=== PATIENT | female | born 2000 | race Caucasian/White ===

== ENCOUNTER 2019-09-30 19:31 | Emergency (ER) | payer BC, OTHER ==
--- NOTE | 2019-09-30 20:47 | EDM.PDOC ---
ED HPI GENERAL MEDICAL PROBLEM - General Chief Complaint: Fever Stated Complaint: MIGRAINE, CHILLS AND NAUSIA Time Seen by Provider: 09/30/19 20:41 - History of Present Illness INITIAL COMMENTS - FREE TEXT/NARRATIVE: Jessenia is a 19 y/o female who comes to the ER with a a bad headache that started last night. She has since developed a fever, chills, sore throat, and clear runny nose. Her throat is sore and she just wants to sleep. Frontal Headache Pain Score (Numeric/FACES): 8 - Related Data Home Meds: Home Meds Benzonatate 100 mg PO Q8HR PRN #60 capsule 09/30/19 [Rx] Codeine/Promethazine [Phenergan with Codeine] 10 ml PO Q4HR PRN #240 ml [Rx] Past Medical History Respiratory History: Reports: Asthma, Other (See Below) Other Respiratory History: lung collapsed Psychiatric History: Reports: Anxiety, Depression - Past Surgical History HEENT Surgical History: Reports: Other (See Below) Other HEENT Surgeries/Procedures: wisdom teeth removed GI Surgical History: Reports: Appendectomy Female Surgical History: Reports: D&C Social & Family History - Tobacco Use Smoking Status *Q: Never Smoker - Alcohol Use Days Per Week of Alcohol Use: 1 Number of Drinks Per Day: 2 Total Drinks Per Week: 2 - Recreational Drug Use Recreational Drug Use: No Review of Systems - Review of Systems Review Of Systems: See Below Constitutional: Reports: Chills, Fever Eyes: Reports: No Symptoms Ears: Reports: No Symptoms Nose: Reports: Clear Discharge Mouth/Throat: Reports: Other (Sore throat) Respiratory: Reports: Cough Cardiovascular: Reports: No Symptoms GI/Abdominal: Reports: No Symptoms Genitourinary: Reports: No Symptoms Musculoskeletal: Reports: Other (Bosy Aches) Skin: Reports: No Symptoms Neurological: Reports: Headache Psychiatric: Reports: No Symptoms ED EXAM, GENERAL - Physical Exam Exam: See Below Exam Limited By: No Limitations General Appearance: Alert, WD/WN, No Apparent Distress, Other (Adult female, appears to not feel well) Ears: Normal External Exam, Normal Canal, Hearing Grossly Normal, Normal TMs Nose: Normal Inspection, Normal Mucosa, No Blood Throat/Mouth: Normal Inspection, Normal Lips, Normal Teeth, Normal Gums, Normal Voice, No Airway Compromise, Inflammation Head: Atraumatic, Normocephalic Neck: Normal Inspection, Supple, Non-Tender Respiratory/Chest: No Respiratory Distress, Lungs Clear, Normal Breath Sounds, Chest Non-Tender Cardiovascular: Normal Peripheral Pulses, Regular Rate, Rhythm, No Edema, No Murmur GI/Abdominal: Normal Bowel Sounds, Soft, Non-Tender (Female) Exam: Deferred Rectal (Female) Exam: Deferred Back Exam: Normal Inspection, Full Range of Motion Extremities: Normal Inspection, Normal Range of Motion, Normal Capillary Refill Neurological: Alert, Oriented, CN II-XII Intact, Normal Cognition, Normal Gait Psychiatric: Normal Affect, Normal Mood Skin Exam: Dry, Intact, Normal Color, No Rash, Increased Warmth Lymphatic: No Adenopathy Course - Vital Signs Text/Narrative:: The patient was seen by the BIOLOGY DEPARTMENT CHAIR. Influenza test was ordered. Results were reviewed. Discharge instructions were given and she was sent home in stable condition. Last Recorded V/S: Last Vital Signs Temp 37.8 C 09/30/19 20:00 Pulse 118 H 09/30/19 20:00 Resp 20 09/30/19 20:00 BP 130/68 09/30/19 20:00 Pulse Ox 98 09/30/19 20:00 - Orders/Labs/Meds Labs: InfluenzaA/B=neb/pos Departure - Departure Time of Disposition: 20:58 Disposition: Home, Self-Care 01 Condition: Good Clinical Impression: Influenza B - Discharge Information *PRESCRIPTION DRUG MONITORING PROGRAM REVIEWED*: No *COPY OF PRESCRIPTION DRUG MONITORING REPORT IN PATIENT HENRY: No Instructions: Influenza, Adult, [id number] Referrals: Altagracia Townsend MD [Primary Care Provider] - Forms: ED Department Discharge, ED Return to Work/School Form Additional Instructions: -Phenergan with Codeine 5-10 ml po q4hr prn cough #240ml(Rx) -Benzonate 100mg caps po q 8hr prn cough #60(Rx) -Acetaminophen/Ibuprofen as needed for pain -Use any over the counter meds that are helpful -Rest -Stay well hydrated -Return to the ER or see your PCP if you are unable to keep fluids down or have difficulty breathing Sepsis Event Note - Evaluation Sepsis Screening Result: Possible Sepsis Risk - Focused Exam Vital Signs: Vital Signs Temp Pulse Resp BP Pulse Ox 12/16/19 20:00 37.8 C 118 H 20 130/68 98 Date Exam was Performed: 09/30/19 Time Exam was Performed: 20:42
== END 2019-09-30 21:30 | disposition home or self-care (01) ==
LOC: VM.ED 19:31
DX: J10.1 Influenza due to other identified influenza virus with other respiratory manifestations (principal)
CPT/HCPCS: 87804; 87804-59; 99284